=== PATIENT | male | born 1950 | race Caucasian/White ===

== ENCOUNTER 2018-08-14 10:12 | Emergency (ER) | payer MEDICARE, OTHER ==
[2018-08-14 10:55] VITALS: BP 137/77
--- NOTE | 2018-08-14 11:39 | UC ---
Throat Pain/Nasal Koby HPI - HPI Summary HPI Summary: 68-year-old male comes in with a chief complaint of sinus pressure runny nose for 4 weeks. The trying [id number] medicines which helped some briefly but then the symptoms come back. No recent fevers. No chest congestion no shortness of breath. He lays down at night makes the symptoms worse. - History of Current Complaint Chief Complaint: UCGeneralIllness Stated Complaint: SINUSES Time Seen by Provider: 08/14/18 11:26 Pain Intensity: 0 - Allergies/Home Medications Allergies/Adverse Reactions: Allergies Allergy/AdvReac Type Severity Reaction Status Date / Time No Known Allergies Allergy Verified 08/14/18 10:49 Home Medications: Home Medications Atorvastatin* [Lipitor*] 1 dose PO DAILY 08/14/18 [History Confirmed 08/14/18] Fexofenadine/Pseudoephedrine [Ann-D 24 Hour Tablet] 1 dose PO DAILY [History Confirmed 08/14/18] Gabapentin CAP(*) [Neurontin 300 CAP(*)] 300 mg PO TID 08/14/18 [History Confirmed 08/14/18] Levothyroxine TAB* [Synthroid TAB*] 1 dose PO DAILY 08/14/18 [History Confirmed 08/14/18] OXcarbazepine TAB(*) [Trileptal 300 mg TAB(*)] 300 mg PO BID 08/14/18 [History Confirmed 08/14/18] levETIRAcetam TAB* [Keppra TAB*] 300 mg PO BID 08/14/18 [History Confirmed 08/14] PMH/Surg Hx/FS Hx/Imm Hx Previously Healthy: Yes Endocrine History: Hypothyroidism, Dyslipidemia - Surgical History Surgery Procedure, Year, and Place: R knee. R arm repair. fractured skull retraction. nose and jaw repair from accident - Family History Known Family History: Positive: Non-Contributory - Social History Alcohol Use: Daily Alcohol Amount: 1 beer Substance Use Type: None Smoking Status (MU): Former Smoker Review of Systems All Other Systems Reviewed And Are Negative: Yes Constitutional: Positive: Negative Skin: Positive: Negative Eyes: Positive: Negative ENT: Positive: Ear Ache, Nasal Discharge, Sinus Congestion, Sinus Pain/ Tenderness Respiratory: Positive: Negative Cardiovascular: Positive: Negative Gastrointestinal: Positive: Negative Motor: Positive: Negative Neurovascular: Positive: Negative Musculoskeletal: Positive: Negative Neurological: Positive: Negative Psychological: Positive: Negative Is Patient Immunocompromised?: No Physical Exam Triage Information Reviewed: Yes Appearance: Well-Appearing, No Pain Distress, Well-Nourished Vital Signs: Initial Vital Signs Temp 98.2 F 08/14/18 10:51 Pulse 85 08/14/18 10:51 Resp 17 08/14/18 10:51 BP 137/77 08/14/18 10:51 Pulse Ox 96 08/14/18 10:51 Vital Signs Reviewed: Yes Eye Exam: Normal Eyes: Positive: Conjunctiva Clear ENT: Positive: Pharyngeal erythema, Nasal congestion, Nasal drainage, TMs normal Neck exam: Normal Neck: Positive: Supple Respiratory: Positive: Lungs clear, Normal breath sounds, No respiratory distress Cardiovascular: Positive: RRR Musculoskeletal Exam: Normal Musculoskeletal: Positive: Strength Intact, ROM Intact Neurological Exam: Normal Neurological: Positive: Alert, Muscle Tone Normal Psychological Exam: Normal Psychological: Positive: Age Appropriate Behavior Skin Exam: Normal Throat Pain/Nasal Course/Dx - Differential Dx/Diagnosis Provider Diagnosis: Sinusitis Discharge - Sign-Out/Discharge Documenting (check all that apply): Patient Departure All imaging exams completed and their final reports reviewed: No Studies - Discharge Plan Condition: Stable Disposition: HOME Prescriptions: Amoxicillin/Clavulanate TAB* [Augmentin TAB 875*] 875 mg PO BID #20 tab Patient Education Materials: Sinusitis (ED) Referrals: Lara SNYDER,Kodi Valle [Primary Care Provider] - Additional Instructions: FOLLOW UP WITH YOUR DOCTOR IF NOT COMPLETELY IMPROVED. GET RECHECKED FOR ANY WORSENING OF YOUR CONDITION OR QUESTIONS OR CONCERNS. - Billing Disposition and Condition Condition: STABLE Disposition: Home
== END 2018-08-14 11:43 | disposition home or self-care (01) ==
LOC: UCCORT 10:12
DX: J32.9 Chronic sinusitis, unspecified (principal); E78.5 Hyperlipidemia, unspecified; E03.9 Hypothyroidism, unspecified; Z79.899 Other long term (current) drug therapy; Z87.891 Personal history of nicotine dependence
CPT/HCPCS: 99202; G0463